=== PATIENT | female | born 1935 | race Caucasian/White ===

== ENCOUNTER 2016-11-28 02:14 | Emergency (ER) | payer OTHER, MEDICARE ==
--- NOTE | 2016-11-28 04:10 | ED ORDER SUMMARY ---
..... Patient: TAMMIE TOURE B OrderSheet [facility] VisitID: [id number] [address] [place] [address] 81y, F Registration Date/Time: 11/28/2016 ORDER SHEET Weight: 104.3 kg (stated) Allergies: Sulfa Antibiotics, Celebrex GENERAL ORDERS: UA-Culture if indicated Urgent (02:29 11/28/2016 AMcQuoid ER Tech1 verbal order read back to Vineet Darling) (2:32 CHagerty ER Die Mounter) CBC w Diff Urgent (02:32 11/28/2016 Vineet Darling) (Ack 2:35 CHagerty ER Die Mounter) (2:35 Roger ER Die Mounter) CMP Urgent (02:11/28/2016 Vineet Darling) (Ack 2:35 CHagerty ER Die Mounter) (2:35 CHagerty ER Die Mounter) PT with INR Urgent (02:11/28/2016 Vineet Darling) (Ack 2:35 CHagerty ER Die Mounter) (2:35 CHagerty ER Die Mounter) Pulse oximeter (02:32 11/28/2016 Vineet Darling) (Ack 2:35 CHagerty ER Die Mounter) (2:36 JDeElena R.N.) CT Abd/Pel wo Cont Urgent (02:33 11/28/2016 Vineet Darling) (Ack 2:35 CHagerty ER Die Mounter) (2:43 AMcQuoid ER Tech1) MEDICATION ORDERS: IV FLUIDS: IV NS : initial bolus 1000 mL (1000 mL/hr), then none - for X1 (NOW) (02:32 11/28/2016 Vineet Darling) (2:35 JDeElena R.N.) Toradol IV 30 mg (NOW) (02:32 11/28/2016 Vineet Darling) (2:36 JDeElena R.N.) Zofran IV 4 mg (NOW) (02:38 11/28/2016 JQuivey R.N. per protocol) (2:38 JQuivey R.N.) Ceftriaxone IV 1 gm/50mL (NOW) (02:59 11/28/2016 Vineet Darling) (Ack 3:00 Lorna R.N.) (3:09 Lorna R.N.) Morphine IV 4 mg (once now. may repeat once for pain > 5/10 in 15 minutes) (03:06 11/28/2016 Vineet Darling) (Ack 3:09 JDeElena R.N.) (3:13 JDeElena R.N.) ORDER SHEET NOTES: [Electronically signed by Miguel Angel Frye R.N. (:11/28/2016)] [Electronically signed by Cliff Tang Dr. (07:30 11/28/2016)] [Electronically locked/signed by Miguel Angel Frye R.N. (11/28/2016)]
--- NOTE | 2016-11-28 04:10 | ED CLINICAL REPORT ---
Clinical Report - Physicians/Mid Levels [facility] [address] [place] [address] 11/28/2016 2:17 Patient: TAMMIE TOURE Time Seen: 228. Arrived- By private vehicle. Historian- patient. HISTORY OF PRESENT ILLNESS Chief Complaint: FLANK PAIN. At its maximum, severity described as severe. When seen in the E.D., severity described as severe. Modifying factors- worsened by movement. Relieved by rest. It is described as sharp. No radiation. It is described as located in the right flank. This started just prior to arrival today and is still present (unchanged). It was abrupt in onset and has been constant but is not gone now. The patient has had nausea and vomiting. No loss of appetite or diarrhea. No additional abdominal pain. Similar symptoms previously: Several times. ( reports it is the same as the last kidney stone that she had.). REVIEW OF SYSTEMS No black stools, bloody stools, fever or chest pain. All systems otherwise negative, except as recorded above. PAST HISTORY See nurses notes. Medications: Nitrostat Sublingual (Tablet Sublingual 0.4 mg) 1 tablet, PRN (dissolve 1 tab under tongue q5min for chest pain, up to 3 doses. ). Metoprolol Succinate ER Oral 40 mg, 1 tab 2 x daily. Budesonide (Inhalation) Inhalation, as needed. ProAir HFA Inhalation. Glipizide Oral (Tablet 5 mg) 1 tablet, 2x a day. Potassium Chloride Oral 20 meq, daily. Furosemide Oral (Tablet 80 mg) 1/2 tablet, daily. Multivitamins Oral. Claritin Oral (Tablet 10 mg) 1 tablet, daily. Vitamin E Complex Oral (Capsule 400 unit) 1 capsule, daily. Bowie 3 Oral (Capsule 1000 mg) 1 capsule, daily. Atorvastatin Calcium Oral (Tablet 40 mg) 1 tablet, at bedtime. Omeprazole Oral 20 mg, daily. Aspirin Oral (Tablet 81 mg) 1 tablet, daily. Allergies: Celebrex. Sulfa Antibiotics. SOCIAL HISTORY Never smoker. No alcohol use or drug use. No recent travel. Is a local resident. ADDITIONAL NOTES The nursing notes have been reviewed. PHYSICAL EXAM Vital Signs: 11/28/2016 02:21 BP: 154/98. HR: 81. RR: 16. O2 saturation: 97%. Temp: 97.5 F. Pain level now: 10/10. Hypertensive. Oxygen saturation normal. Appearance: Alert. Oriented X3. Patient in mild distress. (nontoxic appearance. Pleasant. Cooperative.). Eyes: Pupils equal, round and reactive to light. Eyes normal inspection. ENT: Ears normal. Nose normal. Pharynx normal. Neck: Normal inspection. Neck supple. CVS: Normal heart rate and rhythm. Heart sounds normal. Pulses normal. Respiratory: No respiratory distress. Wheezing present. Rhonchi present. Rales present. Breath sounds normal. Chest nontender. Abdomen: Soft and nontender. Bowel sounds normal. Back: Mild CVA tenderness on the right. Skin: Skin warm and dry. Normal skin color. No rash. Normal skin turgor. Extremities: Extremities exhibit normal ROM. No lower extremity edema. Neuro: Oriented X 3. No motor deficit. No sensory deficit. LABS, X-RAYS, AND EKG Abdominal CT: No free fluid. No bony lesion. right-sided urolithiasis at the UVJ. Associated hydronephrosis. Several other stones noted on examination at the kidneys bilaterally. Study type: renal stone evaluation; abdomen and pelvis. The study was independently viewed by me and interpreted by the radiologist. The study was discussed with the radiologist (via fax). Laboratory Tests: UA-Culture if indicated: (WAQAS: 11/28/2016 02:20) ( MsgRcvd 11/28/2016 02:38) Final results Test Result Flag Units (Reference) URINE COLOR YELLOW URINE APPEARANCE CLEAR URINE GLUCOSE NEGATIVE (NEGATIVE) URINE BILIRUBIN NEGATIVE (NEGATIVE) URINE KETONE TRACE (NEGATIVE) URINE SPECIFIC GRAVITY >= 1.030 (1.010-1.030) URINE PH 5.0 (5.0-8.0) URINE PROTEIN NEGATIVE (NEGATIVE) URINE UROBILINOGEN 0.2 EU/dL (0.2-1.0) URINE NITRITE NEGATIVE (NEGATIVE) URINE BLOOD 3+ (NEGATIVE) URINE LEUK ESTERASE POSITIVE (NEGATIVE) URINE RBC 10-25 rbc/hpf (0-1) URINE WBC 10-15 wbc/hpf (0-1) URINE EPITHELIAL CELLS 1-3 EPI/hpf (0-5) URINE BACTERIA MODERATE (2+ TO 3+) (NONE SEEN) URINE COMMENT CULTURE INDICATED URINE CULTURES ARE SET-UP BASED ON THE FOLLOWING CRITERIA:POSITIVE NITRITEPOSITIVE LEUKOCYTE ESTERASEGREATER THAN 10 WHITE BLOOD CELLSMODERATE (2+) OR GREATER BACTERIA CBC w Diff: (WAQAS: 11/28/2016 02:30) ( [facility] 11/28/2016 02:39) Final results Test Result Flag Units (Reference) WHITE BLOOD COUNT 9.6 K/uL (4.5-11.5) RED BLOOD COUNT 4.57 M/uL (4.00-5.20) HEMOGLOBIN 13.4 gm/dL (12.0-16.0) HEMATOCRIT 41.0 % (36.0-46.0) MEAN CELL VOLUME 90 fL (80-100) MEAN CORPUSCULAR HGB 29 pg (26-34) MEAN CORPUSCULAR HGB CONC 33 g/dL (31-37) RED CELL DISTRIBUTION WIDTH 15.2 H % (11.6-14.8) PLATELET COUNT 291 K/uL (150-400) NEUTROPHIL % 54.9 % (50-75) LYMPH % 32.7 % (25-40) MONO % 9.4 % (3-14) EOSINOPHIL % 2.5 % (0-4) BASOPHIL % 0.5 % (0-2) PT with INR: (WAQAS: 11/28/2016 02:30) ( [facility] 11/28/2016 02:48) Final results Test Result Flag Units (Reference) INR 0.9 (0.8-1.2) Low Intensity Therapy: INR 1.5-2.0 PT range 18.5-23.1Mod.Intensity Therapy: INR 2.0-3.0 PT range 23.1-31.5High Intensity Therapy: INR 2.5-3.5 PT range 27.4-35.5High Intensity Therapy 2: INR 3.0-4.0 PT range 31.5-39.3 CMP: (WAQAS: 11/28/2016 02:30) ( [facility] 11/28/2016 03:07) Final results Test Result Flag Units (Reference) GLUCOSE 164 H mg/dL (70-110) BUN 29 H mg/dL (7-18) CREATININE 1.0 mg/dL (0.6-1.3) Estimated GFR 56.85 mL/min Estimated GFR- >60 mL/min Note: Persistent reduction over 3 months in eGFR<60 mL/min/1.73 m2 defines CKD. Patients with eGFR values>=60 mL/min/1.73 m2 may also have CKD if evidence ofpersistent proteinuria. Additional information may be foundat www.kidney.org. SODIUM 142 mmol/L (136-145) POTASSIUM 4.3 mmol/L (3.5-5.1) CHLORIDE 106 mmol/L (98-107) CARBON DIOXIDE 24 mmol/L (21-32) CALCIUM 8.7 mg/dL (8.5-10.1) TOTAL PROTEIN 7.5 g/dL (6.4-8.2) ALBUMIN 3.5 g/dL (3.3-5.0) BILIRUBIN, TOTAL 0.3 mg/dL (0.0-1.0) ALKALINE PHOSPHATASE 124 H U/L (46-116) AST (SGOT) 26 U/L (15-37) ALT (SGPT) 27 U/L (12-78) . PROGRESS AND PROCEDURES Course of Care: The patient is a pleasant 81-year-old female with past medical history significant for urolithiasis, Remote appendectomy, and remote total hysterectomy with bilateral for ectomy presenting for evaluation of right-sided flank pain. Patient's history and examination is consistent with renal colic. Patient will be evaluated with urinalysis as well as CBC and CMP for evaluation of electrolytes And kidney function. Patient is agreeable to the treatment plan. Fluids have been provided as well as pain medication. Patient is agreeable to the treatment plan. The patient's workup was remarkable for the findings above. Patient with urinary tract infection. First dose of her antibiotics have been provided here in the emergency department. Radiology had commented that the patient's stone is 6 mm however on my examination, the patient's stone is less than 5 mm in of multiple planes. Because of the patient's location and size of stone, good likelihood the patient will have a spontaneous passage of her stone. Medications provided for the symptoms at home. Referral to urology also provided. Patient encouraged to follow up with her primary care doctor and's established care with urologist. While here in the emergency department, patient's pain is significantly improved. Patient continues to be nontoxic. Patient is resting in bed and in no acute distress. Patient has been ambulatory without any significant abnormalities. Discussed with the patient workup here in the emergency department including diagnosis, home care, follow-up, and return precautions. All questions have been answered. The patient expressed understanding of these instructions and was agreeable to them. Disposition: Discharged. Condition: good. CLINICAL IMPRESSION Acute right lower quadrant abdominal pain. Vomiting with nausea (acute). Ureterolithiasis (single stone) in the right ureter. Acute urinary tract infection with hematuria. Essential hypertension. INSTRUCTIONS Warnings: GENERAL WARNINGS: Return or contact your physician immediately if your condition worsens or changes unexpectedly, if not improving as expected, or if other problems arise. SPECIFICALLY, return if you develop pain, fever, vomiting, the inability to keep fluids down, blood in vomitus, blood in diarrhea, fainting or lightheadedness. Your Current Medications: CONTINUE TAKING THE FOLLOWING MEDICATIONS: Aspirin Oral : Tablet 81 mg, 1 tablet daily. Atorvastatin Calcium Oral : Tablet 40 mg, 1 tablet at bedtime. Budesonide (Inhalation) Inhalation : prn. Claritin Oral : Tablet 10 mg, 1 tablet daily. Furosemide Oral : Tablet 80 mg, 1/2 tablet daily. Glipizide Oral : Tablet 5 mg, 1 tablet 2x a day. Metoprolol Succinate ER Oral : 40 mg 1 tab 2 x daily. Multivitamins Oral. Nitrostat Sublingual : Tablet Sublingual 0.4 mg, 1 tablet PRN, dissolve 1 tab under tongue q5min for chest pain, up to 3 doses. Bowie 3 Oral : Capsule 1000 mg, 1 capsule daily. Omeprazole Oral : 20 mg daily. Potassium Chloride Oral : 20 meq daily. ProAir HFA Inhalation. Vitamin E Complex Oral : Capsule 400 unit, 1 capsule daily. Prescription Medications: Zofran (orally disintegrating tablets) 4 mg: take 1 orally every 8 hours as needed for nausea and vomiting. Dispense ten (10). No refill. Substitution is permissible. Cephalexin 500 mg: take 1 capsule orally every 8 hours for 7 days. No refill. (disp 21 caps) Motrin 600 mg tablets: take 1 tablet orally every 6 hours as needed for pain, stiffness or swelling. Dispense thirty (30). No refill. Substitution is permissible. (take with food) Follow-up: Return to the emergency department as needed. Follow up with your doctor in three days. Reason for referral: recheck today's concerns. Summary of care provided to patient via paper. Screening today revealed the patient's blood pressure to be in the hypertensive range. The patient should follow up with a primary care provider for blood pressure management. Understanding of the discharge instructions verbalized by patient. Follow-up with: Aamir Hastings MD, Urology, , [address] [facility] [id number] Follow up in one week. Reason for referral: recheck today's concerns. Summary of care provided to patient via paper. (Electronically signed by Cliff Tang Dr. 11/28/2016 7:30)
--- NOTE | 2016-11-28 04:10 | ED NURSING NOTES ---
Clinical Report - Nurses [facility] [address] [place] [address] 11/28/2016 2:17 Patient: TAMMIE TOURE TRIAGE Triage time 02:22. Acuity: LEVEL 4. Chief Complaint: ABDOMINAL PAIN, LOW BACK PAIN and RIGHT-SIDED FLANK PAIN (Onset of pain about 2 hours ago; localized to R side abdomen/flank. Describes pain as "like I am having a baby and is it not going to quit." Hx of kidney stones, reports S/S are similar to past when she has experienced kidney stones.). Alert. SEPSIS SCREEN: Sepsis Screen: negative. Negative (no infection suspected/documented). --02:30 Miguel Angel Frye R.N. 02:21 11/28/16. BP: 154/98 (regular adult cuff) taken on the left arm, via an automated monitor, while sitting. HR: 81 (normal rate). RR: 16 (regular, unlabored and normal). O2 saturation: 97% on room air. Temp: 97.5 F (oral). Pain level now: 05/10. --02:30 Miguel Angel Frye R.N. Weight: 104.3 kg stated. Height/Length: 68 inches Per Patient. BMI: 35. --02:23 Miguel Angel Frye R.N. Medications Aspirin Oral (Tablet 81 mg) 1 tablet, daily. --02:30 Miguel Angel Frye R.N. Omeprazole Oral 20 mg, daily. --02:31 Miguel Angel Frye R.N. Atorvastatin Calcium Oral (Tablet 40 mg) 1 tablet, at bedtime. --02:31 Miguel Angel Frye R.N. [place] 3 Oral (Capsule 1000 mg) 1 capsule, daily. --02:31 Miguel Angel Frye R.N. Vitamin E Complex Oral (Capsule 400 unit) 1 capsule, daily. --02:31 Miguel Angel Frye R.N. Claritin Oral (Tablet 10 mg) 1 tablet, daily. --02:31 Miguel Angel Frye R.N. Multivitamins Oral. --02:32 Miguel Angel Frye R.N. Furosemide Oral (Tablet 80 mg) 1/2 tablet, daily. --02:32 Miguel Angel Frye R.N. Potassium Chloride Oral 20 meq, daily. --02:32 Miguel Angel Frye R.N. Glipizide Oral (Tablet 5 mg) 1 tablet, 2x a day. --02:32 Miguel Angel Frye R.N. ProAir HFA Inhalation. --02:33 Miguel Angel Frye R.N. Budesonide (Inhalation) Inhalation, as needed. --02:33 Miguel Angel Frye R.N. Metoprolol Succinate ER Oral 40 mg, 1 tab 2 x daily. --02:33 Miguel Angel Frye R.N. Nitrostat Sublingual (Tablet Sublingual 0.4 mg) 1 tablet, PRN (dissolve 1 tab under tongue q5min for chest pain, up to 3 doses. ). --02:34 Miguel Angel Frye R.N. Medication/allergy information source: the patient. --02:30 Miguel Angel Frye R.N. Allergies Sulfa Antibiotics. --02:29 Miguel Angel Frye R.N. Celebrex. --02:29 Miguel Angel Frye R.N. History Arrived by private vehicle. Historian: patient. Unaccompanied. Primary physician (Sinan Nagel). This started just prior to arrival. She has had severe, constant, sharp right-sided flank pain. She has had nausea and vomiting. The vomiting has occurred only once. No hematuria. Last oral intake by patient was (1830 on 11/28/16). Treatment ASSOCIATE DIRECTOR OF DEVELOPMENT: None. PAST MEDICAL HX: Immunizations: up-to-date. SOCIAL HX: Never smoker. No alcohol use or drug use. She has not traveled outside the [place] The patient was not exposed to MRSA. No infectious disease exposure. ABUSE ASSESSMENT: Abuse assessment: The patient was asked "Do you feel safe in your home?" and "Has anyone hurt you or threatened to hurt you?". No report of abuse. SELF HARM ASSESSMENT: A self harm assessment was performed. The patient answered "no" to the question "Do you have thoughts of harming or killing yourself?" and "Have you recently had thoughts about harming or killing others?". FALL RISK ASSESSMENT: Fall risk assessment completed. No fall risk identified. NUTRITIONAL RISK ASSESSMENT: The nutritional risk assessment revealed no deficiencies. LEARNING NEEDS ASSESSMENT: The learning needs assessment revealed no barriers. FUNCTIONAL ASSESSMENT: Functional assessment performed: wears glasses- this visual impairment is an ongoing problem. SKIN INTEGRITY ASSESSMENT: Skin integrity risk assessment completed. No skin integrity risk identified. --02: Miguel Angel Frye R.N. PROBLEMS: Hypertension. Gastroenteritis. Vomiting. Diarrhea. Atrial Fibrillation. Congestive Heart Failure. Gastroesophageal Reflux Disease. Diabetes Mellitus. --: Miguel Angel Frye R.N. ADDITIONAL SURGERIES: Previous Abdominal Surgery. --: Miguel Angel Frye R.N. Assessment GENERAL / NEURO / PSYCH: Alert. Oriented X 4. Appears in pain. Jf Coma Scale: 15- eyes open spontaneously (4); best verbal response- oriented x 4 (5); best motor response- obeys commands (6). Patient appears calm and cooperative. RESPIRATORY: Respirations not labored. SKIN: Skin is warm and dry. --02: Miguel Angel Frye R.N. Interventions ID band on patient. To treatment room. --: Miguel Angel Frye R.N. PHYSICAL ASSESSMENT 02:30. Ambulatory to room. GENERAL / NEURO / PSYCH: Alert. Oriented X 4. Appears in pain. RESPIRATORY: No respiratory distress. Respirations not labored. CVS: Pulses: right radial 2+ and left radial 2+. Capillary refill less than 2 seconds. GI / : Abdomen soft. Abdominal tenderness in the right lower quadrant. CVA tenderness on the right. SKIN: Skin is warm and dry. --04:25 Miguel Angel Frye R.N. NURSING PROGRESS NOTES The initial plan of care for this patient has been created This plan of care was discussed with the patient. Pulse oximeter and NIBP monitor placed on patient. Patient gowned. Reassurance given to the patient. Patient ID band checked for patient name and birthdate: patient confirmed. Instructions provided to collect clean catch urine and patient verbalized understanding. Clean catch urine collected with return of yellow-colored clear urine; sample sent to lab for urinalysis. Specimen labeled in the presence of the patient. Two patient identifiers checked. Call light placed in reach. Side rails up x 1. Bed placed in lowest position. Brakes of bed on. --02:30 Miguel Angel Frye R.N. 02:30 11/28/2016 Site #1 started via IV in the right forearm with an 20g angiocath, with aseptic technique and good blood return; one attempt. Blood drawn: rainbow set. Labeled in the presence of the patient and sent to the lab. Saline lock flushed with 10 mL saline. --02:30 Miguel Angel Frye R.N. 02:35 11/28/2016 Started bag #1 1000 mL IV Fluids IV NS (Saline); at 1000 mL/hr over 1 hour(s) via site #1. Allergies verified and confirmed 5 rights. IV patency established. IV site checked: no pain, redness, or swelling. IV flushed thoroughly pre- and post-medication administration. Completed per protocol. --02:35 Miguel Angel Frye R.N. 02:36 11/28/2016 Toradol IVP 30 mg given over 2 minute(s) via site #1. Allergies verified and confirmed 5 rights. IV patency established. IV site checked: no pain, redness, or swelling. IV flushed thoroughly pre- and post-medication administration. IVP given by RN. --02:36 Miguel Angel Frye R.N. Patient transported to [place] by stretcher with tech. --02:38 Miguel Angel Frye R.N. 02:38 11/28/2016 Zofran (Ondansetron HCl) IVP 4 mg given over 2 minute(s) via site #1. Allergies verified and confirmed 5 rights. IV patency established. IV site checked: no pain, redness, or swelling. IV flushed thoroughly pre- and post-medication administration. --02:38 Jeff Lamar RSharitaNSharita Patient returned from CT by stretcher with tech. --02:43 Miguel Angel Frye R.N. 03:09 11/28/2016 Started 1 gm of Ceftriaxone IVPB in bag #1 50 mL; at 100 mL/hr via site #1; Allergies verified and confirmed 5 rights. IV patency established. IV site checked: no pain, redness, or swelling. IV flushed thoroughly pre- and post-medication administration. Completed per protocol. --03:09 Miguel Angel Frye R.N. 03:13 11/28/2016 Morphine IVP 2 mg given over 2 minute(s) via site #1. Allergies verified, confirmed 5 rights and sedative warning given to the patient. IV patency established. IV site checked: no pain, redness, or swelling. IV flushed thoroughly pre- and post-medication administration. IVP given by RN (Reviewed with EDP giving 1/2 dose prior to administration per pt request.). --03:13 Miguel Angel Frye R.N. 03:11/28/2016 Toradol IVP Response: no adverse reaction pain is improving. --03:13 Miguel Angel Frye R.N. 03:11/28/2016 Zofran IVP Response: no adverse reaction pain is improving. --03:13 Miguel Angel Frye R.N. Reassessment after medication administered. She is calm and resting quietly and has had no adverse reaction. Overall patient status is improved- she states feels better. --03:22 Miguel Angel Frye R.N. 03:11/28/2016 Ceftriaxone IVPB Discontinued: bag #1 completed upon discharge. Total amount infused: 50 mL. IV patency established. IV site checked: no pain, redness, or swelling. IV flushed thoroughly. --03:29 Miguel Angel Frye R.N. 03:11/28/2016 Morphine IVP Response: no adverse reaction pain is improving. Symptoms have improved the patient feels better. --03:29 Miguel Angel Frye R.N. 03:11/28/16. BP: 156/73 (large adult cuff) taken on the left arm, via an automated monitor, while lying. HR: 75 (normal rate). RR: 16 (regular, unlabored and normal). O2 saturation: 94% on room air. --03:30 Miguel Angel Frye R.N. DISPOSITION / DISCHARGE 04:11/28/2016 Site #1 removed upon discharge. Catheter intact. Bandaid applied (bleeding controlled). --04:22 Miguel Angel Frye R.N. Departure time: 04:24. Condition at departure: stable. The goals identified in the patient's plan of care were met. No learning barriers present. Discharge instructions provided and reviewed with the patient. Reviewed medication(s) side effects, precautions, dosing and course information. Prescription(s) given to the patient (Liberty verbalizes importance of finshing all prescribed antbx.). Reviewed referral to a urologist. Patient verbalized understanding. Written instructions provided in Kiswahili. ( Liberty verbalizes understanding of all d/c instructions including need for f/u with Urology. Given strainers and a urine cup to catch stone for analysis. She has no questions and voices no concerns at this time.). The patient was discharged by the physician. She was discharged home and accompanied by family. She left the Emergency Department ambulatory and via private vehicle. Family member driving (Son). JF COMA SCORE: Jf Coma Scale: 15- eyes open spontaneously (4); best verbal response- oriented x 4 (5); best motor response- obeys commands (6). --04:24 Miguel Angel Frye R.N. 04:21 11/28/16. BP: 160/94 (large adult cuff) taken on the left arm, via an automated monitor, while sitting. HR: 72 (normal rate). RR: 16 (regular, unlabored and normal). O2 saturation: 96% on room air. Temp: 97.6 F (oral). Pain level now: 11/08. --04:24 Miguel Angel Frye R.N. Locked/Released at 11/28/2016 4:25 by Miguel Angel Frye R.N.
--- NOTE | 2016-11-28 04:10 | ED ORDER SUMMARY ---
..... Patient: TAMMIE TOURE B OrderSheet [facility] VisitID: [id number] [address] [place] [address] 81y, F Registration Date/Time: 11/28/2016 ORDER SHEET Weight: 104.3 kg (stated) Allergies: Sulfa Antibiotics, Celebrex GENERAL ORDERS: UA-Culture if indicated Urgent (02:29 11/28/2016 AMcQuoid ER Tech1 verbal order read back to Vineet Darling) (2:32 CHagerty ER Prawn Trawler Hand) CBC w Diff Urgent (02:32 11/28/2016 Vineet Darling) (Ack 2:35 CHagerty ER Prawn Trawler Hand) (2:35 Roger ER Prawn Trawler Hand) CMP Urgent (02:11/28/2016 Vineet Darling) (Ack 2:35 CHagerty ER Prawn Trawler Hand) (2:35 CHagerty ER Prawn Trawler Hand) PT with INR Urgent (02:11/28/2016 Vineet Darling) (Ack 2:35 CHagerty ER Prawn Trawler Hand) (2:35 CHagerty ER Prawn Trawler Hand) Pulse oximeter (02:32 11/28/2016 Vineet Darling) (Ack 2:35 CHagerty ER Prawn Trawler Hand) (2:36 JDeElena R.N.) CT Abd/Pel wo Cont Urgent (02:33 11/28/2016 Vineet Darling) (Ack 2:35 CHagerty ER Prawn Trawler Hand) (2:43 AMcQuoid ER Tech1) MEDICATION ORDERS: IV FLUIDS: IV NS : initial bolus 1000 mL (1000 mL/hr), then none - for X1 (NOW) (02:32 11/28/2016 Vineet Darling) (2:35 JDeElena R.N.) Toradol IV 30 mg (NOW) (02:32 11/28/2016 Vineet Darling) (2:36 JDeElena R.N.) Zofran IV 4 mg (NOW) (02:38 11/28/2016 JQuivey R.N. per protocol) (2:38 JQuivey R.N.) Ceftriaxone IV 1 gm/50mL (NOW) (02:59 11/28/2016 Vineet Darling) (Ack 3:00 Lorna R.N.) (3:09 Lorna R.N.) Morphine IV 4 mg (once now. may repeat once for pain > 5/10 in 15 minutes) (03:06 11/28/2016 Vineet Darling) (Ack 3:09 JDeElena R.N.) (3:13 JDeElena R.N.) ORDER SHEET NOTES: [Electronically signed by Miguel Angel Frye R.N. (:11/28/2016)] [Electronically signed by Cliff Tang Dr. (07:30 11/28/2016)] [Electronically locked/signed by Miguel Angel Frye R.N. (11/28/2016)]
--- NOTE | 2016-11-28 07:18 | DIAGNOSTIC IMAGING REPORT ---
PROCEDURE: CT ABDOMEN/PELVIS W/O CONTRAST INDICATION: RIGHT FLANK PAIN TECHNIQUE: Noncontrast axial images were obtained of the entire abdomen and pelvis with sagittal and coronal reformations. COMPARISON: None. FINDINGS: ABDOMEN: 5 mm right UVJ calculus with moderate right hydroureteronephrosis. Bilateral nonobstructing renal calculi (one - 2 mm). 4 cm left renal cyst. Lung base are clear. Mild cardiomegaly. Contracted gallbladder. Liver, pancreas, spleen and adrenal glands are normal. Mild atherosclerosis. Nonspecific bowel gas pattern. Mild hiatal hernia. PELVIS: History of appendectomy. Hysterectomy. No pelvic mass, inflammatory changes or free fluid. Grade 1 L4-5 anterolisthesis. IMPRESSION: 1. 5 mm right UVJ calculus with moderate right hydroureteronephrosis 2. Bilateral nonobstructing renal calculi 3. Small hiatal hernia 4. Appendectomy and hysterectomy 5. Preliminary results submitted by Dr. Lozano, [facility] radiology. All CT scans at this facility use dose modulation, iterative reconstruction, and/or weight-based dosing when appropriate to reduce radiation dose to as low as reasonably achievable.
--- NOTE | 2016-11-28 07:31 | ED MED RECONCILIATION SUMMARY ---
Patient: TAMMIE TOURE Medication Reconciliation Report [facility] VisitID: [id number] [place] [address] 81y, F Registration Date/Time: 11/28/2016 Weight: 104.3 kg Height/Length: 68 in. BMI: 35.0 ALLERGIES: Celebrex, Sulfa Antibiotics The patient's Home Medications are listed below: CONTINUE TAKING THE FOLLOWING MEDICATIONS: Aspirin Oral (81 mg) 1 tablet, daily Atorvastatin Calcium Oral (40 mg) 1 tablet, at bedtime Budesonide (Inhalation) Inhalation Claritin Oral (10 mg) 1 tablet, daily Furosemide Oral (80 mg) 1/2 tablet, daily Glipizide Oral (5 mg) 1 tablet, 2x a day Metoprolol Succinate ER Oral 40 mg, 1 tab 2 x daily Multivitamins Oral Nitrostat Sublingual (0.4 mg) 1 tablet, PRN, dissolve 1 tab under tongue q5min for chest pain, up to 3 doses. [place] 3 Oral (1000 mg) 1 capsule, daily Omeprazole Oral 20 mg, daily Potassium Chloride Oral 20 meq, daily ProAir HFA Inhalation Vitamin E Complex Oral (400 unit) 1 capsule, daily The source(s) of the original Home Medication information: patient The following Medications were given to the patient in the Emergency Department: IV NS IV Fluids bolus 0, then 1000 mL/hr, administered: 11/28/2016 2:35:00 AM Toradol [IVP] IVP 30 mg, administered: 11/28/2016 2:36:00 AM Zofran [IVP] IVP 4 mg, administered: 11/28/2016 2:38:00 AM Ceftriaxone [IVPB] IVPB bolus 0, then 1 gm 100 mL/hr, administered: 11/28/2016 3:09:00 AM Morphine [IVP] IVP 2 mg, administered: 11/28/2016 3:13:00 AM The following Medications were prescribed to the patient: Zofran (orally disintegrating tablets) 4 mg: take 1 orally every 8 hours as needed for nausea and vomiting. Dispense ten (10). No refill. Substitution is permissible. -- Cliff Tang Dr. Cephalexin 500 mg: take 1 capsule orally every 8 hours for 7 days. No refill.(disp 21 caps) -- Cliff Tang Dr. Motrin 600 mg tablets: take 1 tablet orally every 6 hours as needed for pain, stiffness or swelling. Dispense thirty (30). No refill. Substitution is permissible.(take with food) -- Cliff Tang Dr.
--- NOTE | 2016-11-28 07:31 | ED MED RECONCILIATION SUMMARY ---
Patient: TAMMIE TOURE Medication Reconciliation Report [facility] VisitID: [id number] [place] [address] 81y, F Registration Date/Time: 11/28/2016 Weight: 104.3 kg Height/Length: 68 in. BMI: 35.0 ALLERGIES: Celebrex, Sulfa Antibiotics The patient's Home Medications are listed below: CONTINUE TAKING THE FOLLOWING MEDICATIONS: Aspirin Oral (81 mg) 1 tablet, daily Atorvastatin Calcium Oral (40 mg) 1 tablet, at bedtime Budesonide (Inhalation) Inhalation Claritin Oral (10 mg) 1 tablet, daily Furosemide Oral (80 mg) 1/2 tablet, daily Glipizide Oral (5 mg) 1 tablet, 2x a day Metoprolol Succinate ER Oral 40 mg, 1 tab 2 x daily Multivitamins Oral Nitrostat Sublingual (0.4 mg) 1 tablet, PRN, dissolve 1 tab under tongue q5min for chest pain, up to 3 doses. [place] 3 Oral (1000 mg) 1 capsule, daily Omeprazole Oral 20 mg, daily Potassium Chloride Oral 20 meq, daily ProAir HFA Inhalation Vitamin E Complex Oral (400 unit) 1 capsule, daily The source(s) of the original Home Medication information: patient The following Medications were given to the patient in the Emergency Department: IV NS IV Fluids bolus 0, then 1000 mL/hr, administered: 11/28/2016 2:35:00 AM Toradol [IVP] IVP 30 mg, administered: 11/28/2016 2:36:00 AM Zofran [IVP] IVP 4 mg, administered: 11/28/2016 2:38:00 AM Ceftriaxone [IVPB] IVPB bolus 0, then 1 gm 100 mL/hr, administered: 11/28/2016 3:09:00 AM Morphine [IVP] IVP 2 mg, administered: 11/28/2016 3:13:00 AM The following Medications were prescribed to the patient: Zofran (orally disintegrating tablets) 4 mg: take 1 orally every 8 hours as needed for nausea and vomiting. Dispense ten (10). No refill. Substitution is permissible. -- Cliff Tang Dr. Cephalexin 500 mg: take 1 capsule orally every 8 hours for 7 days. No refill.(disp 21 caps) -- Cliff Tang Dr. Motrin 600 mg tablets: take 1 tablet orally every 6 hours as needed for pain, stiffness or swelling. Dispense thirty (30). No refill. Substitution is permissible.(take with food) -- Cliff Tang Dr.
--- NOTE | 2016-11-28 07:31 | ED MAR SUMMARY ---
..... Medication Administration Record [facility] [address] [place] [address] Patient: TAMMIE TOURE Visit ID: [id number] 81y, F Weight: 104.3 kg Height/Length: 68 in BMI: 35 ALLERGIES: Celebrex, Sulfa Antibiotics Start 02:35 11/28/2016 Miguel Angel Frye R.N. Medication Administered: IV NS (SALINE), Dose: IV Fluids over 1 hour(s), Rate: 1000 mL/hr, Dispensed: 1000 mL bag, Site: #1 right forearm. Medication Ordered: IV NS : initial bolus 1000 mL (1000 mL/hr), then none - for X1 (NOW). Given 02:36 11/28/2016 Miguel Angel Frye R.N. Medication Administered: TORADOL [IVP], Dose: 30 mg IVP over 2 minute(s), Site: #1 right forearm. Medication Ordered: Toradol IV 30 mg (NOW). Given 02:38 11/28/2016 Jeff Lamar R.N. Medication Administered: ZOFRAN [IVP] (ONDANSETRON HCL), Dose: 4 mg IVP over 2 minute(s), Site: #1 right forearm. Medication Ordered: Zofran IV 4 mg (NOW). Start 03:09 11/28/2016 Miguel Angel Frye R.N., Stop 03:29 11/28/2016 Miguel Angel Frye R.N. Medication Administered: CEFTRIAXONE [IVPB], Dose: 1 gm IVPB, Rate: 100 mL/hr, Dispensed: 50 mL bag, Site: #1 right forearm. Medication Ordered: Ceftriaxone IV 1 gm/50mL (NOW). Given 03:13 11/28/2016 Miguel Angel Frye R.N. Medication Administered: MORPHINE [IVP], Dose: 2 mg IVP over 2 minute(s), Site: #1 right forearm. Medication Ordered: Morphine IV 4 mg (once now. may repeat once for pain > 5/10 in 15 minutes).
--- NOTE | 2016-11-28 07:31 | ED DISCHARGE INSTRUCTIONS ---
Patient: TAMMIE TOURE General Instructions [facility] VisitID: [id number] [place] [address] 81y, F Registration Date/Time: 11/28/2016 Acute right lower quadrant abdominal pain. Vomiting with nausea (acute). Ureterolithiasis (single stone) in the right ureter. Acute urinary tract infection with hematuria. Essential hypertension. INSTRUCTIONS Warnings: GENERAL WARNINGS: Return or contact your physician immediately if your condition worsens or changes unexpectedly, if not improving as expected, or if other problems arise. SPECIFICALLY, return if you develop pain, fever, vomiting, the inability to keep fluids down, blood in vomitus, blood in diarrhea, fainting or lightheadedness. Your Current Medications: CONTINUE TAKING THE FOLLOWING MEDICATIONS: Aspirin Oral : Tablet 81 mg, 1 tablet daily. Atorvastatin Calcium Oral : Tablet 40 mg, 1 tablet at bedtime. Budesonide (Inhalation) Inhalation : prn. Claritin Oral : Tablet 10 mg, 1 tablet daily. Furosemide Oral : Tablet 80 mg, 1/2 tablet daily. Glipizide Oral : Tablet 5 mg, 1 tablet 2x a day. Metoprolol Succinate ER Oral : 40 mg 1 tab 2 x daily. Multivitamins Oral. Nitrostat Sublingual : Tablet Sublingual 0.4 mg, 1 tablet PRN, dissolve 1 tab under tongue q5min for chest pain, up to 3 doses. Earlimart 3 Oral : Capsule 1000 mg, 1 capsule daily. Omeprazole Oral : 20 mg daily. Potassium Chloride Oral : 20 meq daily. ProAir HFA Inhalation. Vitamin E Complex Oral : Capsule 400 unit, 1 capsule daily. Prescription Medications: Zofran (orally disintegrating tablets) 4 mg: take 1 orally every 8 hours as needed for nausea and vomiting. Dispense ten (10). No refill. Substitution is permissible. Cephalexin 500 mg: take 1 capsule orally every 8 hours for 7 days. No refill. (disp 21 caps) Motrin 600 mg tablets: take 1 tablet orally every 6 hours as needed for pain, stiffness or swelling. Dispense thirty (30). No refill. Substitution is permissible. (take with food) Follow-up: Return to the emergency department as needed. Follow up with your doctor in three days. Reason for referral: recheck today's concerns. Summary of care provided to patient via paper. Screening today revealed the patient's blood pressure to be in the hypertensive range. The patient should follow up with a primary care provider for blood pressure management. Understanding of the discharge instructions verbalized by patient. Follow-up with: Aamir Hastings MD, Urology, , [address] [facility] , [place], [id number] Follow up in one week. Reason for referral: recheck today's concerns. Summary of care provided to patient via paper. ADDITIONAL INFORMATION Abdominal Pain, Unknown Cause (Female) The exact cause of your abdominal (stomach) pain is not certain. This does not mean that this is something to worry about, or the right tests were not done. Everyone likes to know the exact cause of the problem, but sometimes with abdominal pain, there is no clear-cut cause, and this could be a good thing. The good news is that your symptoms can be treated, and you will feel better. Your condition does not seem serious now; however, sometimes the signs of a serious problem may take more time to appear. For this reason,it is important for you to watch for any new symptoms, problems,or worsening of your condition. Over the next few days, the abdominal pain may come and go, or be continuous. Other common symptoms can include nausea and vomiting. Sometimes it can be difficult to tell if you feel nauseous, you may just feel bad and not associate that feeling with nausea. Constipation, diarrhea, and a fever may go along with the pain. The pain may continue even if treated correctly over the following days. Depending on how things go, sometimes the cause can become clear and may require further or different treatment. Additional evaluations, medications, or tests may be needed. Home care Your health care provider may prescribe medications for pain, symptoms, or an infection. Follow the health care provider's instructions for taking these medications. General care Rest until your next exam. No strenuous activities. Try to find positions that ease discomfort. A small pillow placed on the abdomen may help relieve pain. Something warm on your abdomen (such as a heating pad) may help, but be careful not to burn yourself. Diet Do not force yourself to eat, especially if having cramps, vomiting, or diarrhea. Water is important so you do not get dehydrated. Soup may also be good. Sports drinks may also help, especially if they are not too acidic. Make sure you don't drink sugary drinks as this can make things worse. Take liquids in small amounts. Do not guzzle them. Caffeine sometimes makes the pain and cramping worse. Avoid dairy products if you have vomiting or diarrhea. Don't eat large amounts at a time. Wait a few minutes between bites. Eat a diet low in fiber (called a low-residue diet). Foods allowed include refined breads, white rice, fruit and vegetable juices without pulp, tender meats. These foods will pass more easily through the intestine. Avoid whole-grain foods, whole fruits and vegetables, meats, seeds and nuts, fried or fatty foods, dairy, alcohol and spicy foods until your symptoms go away. Follow-up care Follow up with your health care provider as instructed, or if your pain does not begin to improve in the next 24 hours. When to seek medical care Seek prompt medical care if any of the following occur: Pain gets worse or moves to the right lower abdomen New or worsening vomiting or diarrhea Swelling of the abdomen Unable to pass stool for more than three days Fever of 100.4F (38C) or higher, or as directed by your healthcare provider. Blood in vomit or bowel movements (dark red or black color) Jaundice (yellow color of eyes and skin) Weakness, dizziness Chest, arm, back, neck or jaw pain Unexpected vaginal bleeding or missed period Call 911 Call emergency services if any of the following occur: Trouble breathing Confusion Fainting or loss of consciousness Rapid heart rate Seizure Vomiting [6Yr-Adult] Vomiting is a common symptom that may be due to different causes. These include gastroenteritis ("stomach flu"), food poisoning and gastritis. There are other more serious causes of vomiting which may be hard to diagnose early in the illness. Therefore, it is important to watch for the warning signs listed below. The main danger from repeated vomiting is dehydration. This is due to excess loss of water and minerals from the body. When this occurs, body fluids must be replaced. Home Care: If symptoms are severe, rest at home for the next 24 hours. You may use acetaminophen (Tylenol) or ibuprofen (Motrin, Advil) to control fever, unless another medicine was prescribed. [NOTE : If you have chronic liver or kidney disease or ever had a stomach ulcer or GI bleeding, talk with your doctor before using these medicines.] (Aspirin should never be used in anyone under 18 years of age who is ill with a fever. It may cause severe liver damage.) Avoid tobacco and alcohol use, which may worsen your symptoms. If medicines for vomiting were prescribed, take as directed. Once vomiting stops, then follow these guidelines: During The First 12-24 Hours follow the diet below: FRUIT JUICES: Apple, grape juice, clear fruit drinks, and electrolyte replacement drinks. BEVERAGES: Soft drinks without caffeine; mineral water (plain or flavored), decaffeinated tea and coffee. SOUPS: Clear broth, consomm and bouillon DESSERTS: Plain gelatin, popsicles and fruit juice bars. As you feel better, you may add 6-8 ounces of yogurt per day. During The Next 24 Hours you may add the following to the above: Hot cereal, plain toast, bread, rolls, crackers Plain noodles, rice, mashed potatoes, chicken noodle or rice soup Unsweetened canned fruit (avoid pineapple), bananas Limit caffeine and chocolate. No spices or seasonings except salt. During The Next 24 Hours Gradually resume a normal diet, as you feel better and your symptoms lessen. Follow Up with your doctor as advised if you are not improving over the next 2-3 days. Get Prompt Medical Attention if any of the following occur: Constant right-sided lower abdominal pain or increasing general abdominal pain Continued vomiting (unable to keep liquids down) for 24 hours Frequent diarrhea (more than 5 times a day); blood (red or black color) or mucus in diarrhea Reduced urine output or extreme thirst Weakness, dizziness or fainting Unusually drowsy or confused Fever of 100.4F (38C) oral or higher, not better with fever medication Yellow color of the eyes or skin Kidney Stone (W/ Colic) The sharp cramping pain and nausea/vomiting that you have is due to a small stone which has formed in the kidney and is now passing down a narrow tube (ureter) on its way to your bladder. Once it reaches your bladder, the pain will stop. The stone may pass in your urine stream in one piece. [The size may be 1/16" to 1/4" (1-6mm)]. Or, the stone may also break up into gaudencio fragments which you may not even notice. Once you have had a kidney stone, you are at risk for developing another one in the future. Home Care: Drink plenty of fluids (at least 8 to 10 glasses of water a day). Most stones will pass on their own, but may take from a few hours to a few days. Sometimes the stone is too large to pass by itself and special methods will have to be used to remove the stone. Each time you urinate, do so in a jar. Pour the urine from the jar through the strainer and into the toilet. Continue doing this until 24 hours after your pain stops. By then, if there was a kidney stone, it should pass from your bladder. Some stones dissolve into sand-like particles and pass right through the strainer. In that case, you wont ever see a stone. Save any stone that you find in the strainer and bring it to your doctor for analysis. It may be possible to prevent certain types of stones from forming. Therefore, it is important to know what kind of stone you have. Try to stay as active as possible since this will help the stone pass. Do not stay in bed unless your pain prevents you from getting up. You may notice a red, pink or brown color to your urine. This is normal while passing a kidney stone. Follow Up with your doctor or return to this facility if the pain lasts more than 48 hours. Get Prompt Medical Attention if any of the following occur: Pain that is not controlled by the medicine given Repeated vomiting or unable to keep down fluids Weakness, dizziness or fainting Fever of 100.4F (38C) or higher, or as directed by your healthcare provider Passage of solid red or brown urine (can't see through it) or urine with lots of blood clots Unable to pass urine for 8 hours and increasing bladder pressure Blood In The Urine Blood in the urine ("hematuria") has many possible causes. If it occurs after an injury (such as a car accident or fall), it is most often a sign of bruising to the kidney or bladder. Common medical causes of blood in the urine include urinary tract infection, kidney stone, inflammation, tumors, or certain other diseases of the kidney or bladder. Menstruation can cause blood to appear in the urine sample, although it is not coming from the urinary tract. If only a trace amount of blood is present, it will show up on the urine test, even though the urine may be yellow and not pink or red. This may occur with any of the above conditions, as well as heavy exercise or high fever. In this case, your doctor may want to repeat the urine test on another day. This will show if the blood is still present. If so, then other tests can be done to find out the cause. Home Care: If your urine does not appear bloody (pink, brown or red) then you do not need to restrict your activity in any way. If you can see blood in your urine, rest and avoid heavy exertion until your next exam. Do not use aspirin or anti-inflammatory medicine like ibuprofen (Motrin, Advil) or naproxen (Naprosyn, Aleve). These thin the blood and may increase bleeding. Follow Up with your doctor or as advised by our staff. If you were injured and had blood in your urine, you should have a repeat urine test in 1-2 days. Contact your doctor or return to this facility for this test. [NOTE: A radiologist will review any X-rays that were taken. We will notify you of any new findings that may affect your care.] Get Prompt Medical Attention if any of the following occur: Bright red blood or blood clots in the urine (if a new symptom) Weakness, dizziness or fainting New groin, abdominal or back pain Fever of 100.4F (38C) or higher, or as directed by your healthcare provider Repeated vomiting Bleeding from nose, gums or easy bruising Bladder Infection,Female (Adult) A bladder infection ("cystitis" or "UTI") usually causes a constant urge to urinate and a burning when passing urine. Urine may be cloudy, smelly or dark. There may be pain in the lower abdomen. A bladder infection occurs when bacteria from the vaginal area enter the bladder opening (urethra). This can occur from sexual intercourse, wearing tight clothing, dehydration and other factors. Home Care: Drink lots of fluids (at least 6-8 glasses a day, unless you must restrict fluids for other medical reasons). This will force the medicine into your urinary system and flush the bacteria out of your body. Avoid sexual intercourse until your symptoms are gone. Avoid caffeine, alcohol and spicy foods. These can irritate the bladder. A bladder infection is treated with antibiotics. You may also be given Pyridium (generic = phenazopyridine) to reduce the burning sensation. This medicine will cause your urine to become a bright orange color. The orange urine may stain clothing. You may wear a pad or panty-liner to protect clothing. Preventing Future Infections: Always wipe from front to back after a bowel movement. Keep the genital area clean and dry. Drink plenty of fluids each day to avoid dehydration. Both sexual partners should wash before intercourse. Urinate right after intercourse to flush out the bladder. Wear cotton underwear and cotton-lined panty hose; avoid tight-fitting pants. If you are on control pills and are having frequent bladder infections, discuss with your doctor. Follow Up: Return to this facility or see your doctor if ALL symptoms are not gone after three days of treatment. Get Prompt Medical Attention if any of the following occur: Fever of 100.4F (38C) or higher, or as directed by your healthcare provider No improvement by the third day of treatment Increasing back or abdominal pain Repeated vomiting; unable to keep medicine down Weakness, dizziness or fainting Vaginal discharge Pain, redness or swelling in the labia (outer vaginal area) High Blood Pressure --Established High Blood Pressure (Hypertension) is a chronic disease. The cause is unknown in most cases. It can usually be controlled with lifestyle changes and/or medicines. Symptoms of high blood pressure may include headache, dizziness, visual changes, chest pain and shortness of breath. Sometimes it causes no symptoms at all. However, even if there are no symptoms, untreated high blood pressure increases the risk of heart attack, also known as acute myocardial infarction, or AMI, and stroke. It is a serious health risk and should not be ignored. A normal blood pressure is 120/80 or less. The first (top) number is the "systolic" pressure. The second (bottom) number is the "diastolic" pressure. Hypertension exists when either the top number is 140 or higher, OR the bottom number is 90 or higher on repeated measurements. Home Care: All patients with high blood pressure should do the following to lower their pressure. If you are on medicines, then these methods may reduce or eliminate your need for medicines in the future. Begin a weight loss program if you are overweight. Reduce your salt intake. Avoid high salt foods (olives, pickles, smoked meats, salted potato chips, etc.). Do not add salt to your food at the table. Use only small amounts of salt when cooking. Begin an exercise program. Discuss with your doctor what type of exercise program would be best for you. It doesn't have to be difficult. Even brisk walking for 20 minutes three times a week is a good form of exercise. Avoid medicines which contain heart stimulants. This includes many cold and sinus decongestant pills and sprays as well as diet pills. Check the warnings about hypertension on the label. Stimulants such as amphetamine or cocaine could be lethal for someone with hypertension. Never take these. Limit your caffeine intake or switch to caffeine-free products. Stop smoking. If you are a long-time smoker, this can be hard. Enroll in a stop-smoking program to improve your chance of success. Learning how to handle stress better is an important part of any program to lower blood pressure. Learn about relaxation methods such as meditation, yoga or biofeedback. If medicines were prescribed, take them exactly as directed. Missing doses may cause your blood pressure get out of control. Consider buying an automatic blood pressure machine (available at most pharmacies). Use this to monitor your blood pressure at home and report the results to your doctor. Follow Up: Regular visits to your own physician for blood pressure checks and medicine adjustment is an important part of your care. Make a follow-up appointment as directed by our staff. Get Prompt Medical Attention if any of the following occur: Chest pain or shortness of breath Severe headache Throbbing or rushing sound in the ears Nosebleed Sudden severe abdominal pain Extreme drowsiness, confusion or fainting Dizziness or vertigo (dizziness with spinning sensation) Weakness of an arm or leg or one side of the face Difficulty with speech or vision Ondansetron Oral disintegrating tablet What is this medicine? ONDANSETRON (on JOEY se bertrand) is used to treat nausea and vomiting caused by chemotherapy. It is also used to prevent or treat nausea and vomiting after surgery. How should I use this medicine? These tablets are made to dissolve in the mouth. Do not try to push the tablet through the foil backing. With dry hands, peel away the foil backing and gently remove the tablet. Place the tablet in the mouth and allow it to dissolve, then swallow. While you may take these tablets with water, it is not necessary to do so. Talk to your theater projectionist regarding the use of this medicine in children. Special care may be needed. What side effects may I notice from receiving this medicine? Side effects that you should report to your doctor or health critical care unit nurse as soon as possible: allergic reactions like skin rash, itching or hives, swelling of the face, lips, or tongue breathing problems dizziness fast or irregular heartbeat feeling faint or lightheaded, falls fever and chills swelling of the hands and feet tightness in the chest Side effects that usually do not require medical attention (report to your doctor or health critical care unit nurse if they continue or are bothersome): constipation or diarrhea headache What may interact with this medicine? Do not take this medicine with any of the following medications: -apomorphine -cisapride -dofetilide -dronedarone -pimozide -thioridazine -ziprasidone This medicine may also interact with the following medications: -carbamazepine -phenytoin -rifampicin -tramadol -other medicines that prolong the QT interval (cause an abnormal heart rhythm) What if I miss a dose? If you miss a dose, take it as soon as you can. If it is almost time for your next dose, take only that dose. Do not take double or extra doses. Where should I keep my medicine? Keep out of the reach of children. Store between 2 and 30 degrees C (36 and 86 degrees F). Throw away any unused medicine after the expiration date. What should I tell my health care provider before I take this medicine? They need to know if you have any of these conditions: heart disease history of irregular heartbeat liver disease low levels of magnesium or potassium in the blood an unusual or allergic reaction to ondansetron, granisetron, other medicines, foods, dyes, or preservatives or trying to get breast-feeding What should I watch for while using this medicine? Check with your doctor or health critical care unit nurse as soon as you can if you have any sign of an allergic reaction. Cephalexin Monohydrate Oral tablet What is this medicine? CEPHALEXIN (sef a MANNY in) is a cephalosporin antibiotic. It is used to treat certain kinds of bacterial infections It will not work for colds, flu, or other viral infections. How should I use this medicine? Take this medicine by mouth with a full glass of water. Follow the directions on the prescription label. This medicine can be taken with or without food. Take your medicine at regular intervals. Do not take your medicine more often than directed. Take all of your medicine as directed even if you think you are better. Do not skip doses or stop your medicine early. Talk to your theater projectionist regarding the use of this medicine in children. While this drug may be prescribed for selected conditions, precautions do apply. What side effects may I notice from receiving this medicine? Side effects that you should report to your doctor or health critical care unit nurse as soon as possible: allergic reactions like skin rash, itching or hives, swelling of the face, lips, or tongue breathing problems pain or trouble passing urine redness, blistering, peeling or loosening of the skin, including inside the mouth severe or watery diarrhea unusually weak or tired yellowing of the eyes, skin Side effects that usually do not require medical attention (report to your doctor or health critical care unit nurse if they continue or are bothersome): gas or heartburn genital or anal irritation headache joint or muscle pain nausea, vomiting What may interact with this medicine? probenecid some other antibiotics What if I miss a dose? If you miss a dose, take it as soon as you can. If it is almost time for your next dose, take only that dose. Do not take double or extra doses. There should be at least 4 to 6 hours between doses. Where should I keep my medicine? Keep out of the reach of children. Store at room temperature between 59 and 86 degrees F (15 and 30 degrees C). Throw away any unused medicine after the expiration date. What should I tell my health care provider before I take this medicine? They need to know if you have any of these conditions: kidney disease stomach or intestine problems, especially colitis an unusual or allergic reaction to cephalexin, other cephalosporins, penicillins, other antibiotics, medicines, foods, dyes or preservatives or trying to get breast-feeding What should I watch for while using this medicine? Tell your doctor or health critical care unit nurse if your symptoms do not begin to improve in a few days. Do not treat diarrhea with over the counter products. Contact your doctor if you have diarrhea that lasts more than 2 days or if it is severe and watery. If you have diabetes, you may get a false-positive result for sugar in your urine. Check with your doctor or health critical care unit nurse. Ibuprofen Oral tablet What is this medicine? IBUPROFEN (eye BYOO proe fen) is a non-steroidal anti-inflammatory drug (NSAID). It is used for dental pain, fever, headaches or migraines, osteoarthritis, rheumatoid arthritis, or painful monthly periods. It can also relieve minor aches and pains caused by a cold, flu, or sore throat. How should I use this medicine? Take this medicine by mouth with a glass of water. Follow the directions on the prescription label. Take this medicine with food if your stomach gets upset. Try to not lie down for at least 10 minutes after you take the medicine. Take your medicine at regular intervals. Do not take your medicine more often than directed. A special MedGuide will be given to you by the pharmacist with each prescription and refill. Be sure to read this information carefully each time. Talk to your theater projectionist regarding the use of this medicine in children. Special care may be needed. What side effects may I notice from receiving this medicine? Side effects that you should report to your doctor or health critical care unit nurse as soon as possible: allergic reactions like skin rash, itching or hives, swelling of the face, lips, or tongue black or bloody stools, blood in the urine or in vomit breathing problems changes in vision chest pain general ill feeling or flu-like symptoms nausea or vomiting redness, blistering, peeling or loosening of the skin, including inside the mouth slurred speech or weakness on one side of the body stomach pain unexplained weight gain or swelling unusually weak or tired yellowing of eyes or skin Side effects that usually do not require medical attention (report to your doctor or health critical care unit nurse if they continue or are bothersome): constipation or diarrhea dizziness gas or heartburn stomach upset What may interact with this medicine? Do not take this medicine with any of the following medications: cidofovir ketorolac methotrexate pemetrexed This medicine may also interact with the following medications: alcohol aspirin diuretics lithium other drugs for inflammation like prednisone warfarin What if I miss a dose? If you miss a dose, take it as soon as you can. If it is almost time for your next dose, take only that dose. Do not take double or extra doses. Where should I keep my medicine? Keep out of the reach of children. Store at room temperature between 15 and 30 degrees C (59 and 86 degrees F). Keep container tightly closed. Throw away any unused medicine after the expiration date. What should I tell my health care provider before I take this medicine? They need to know if you have any of these conditions: asthma cigarette smoker drink more than 3 alcohol containing drinks a day heart disease or circulation problems such as heart failure or leg edema (fluid retention) high blood pressure kidney disease liver disease stomach bleeding or ulcers an unusual or allergic reaction to ibuprofen, aspirin, other NSAIDS, other medicines, foods, dyes, or preservatives or trying to get breast-feeding What should I watch for while using this medicine? Tell your doctor or healthcare professional if your symptoms do not start to get better or if they get worse. This medicine does not prevent heart attack or stroke. In fact, this medicine may increase the chance of a heart attack or stroke. The chance may increase with longer use of this medicine and in people who have heart disease. If you take aspirin to prevent heart attack or stroke, talk with your doctor or health critical care unit nurse. Do not take other medicines that contain aspirin, ibuprofen, or naproxen with this medicine. Side effects such as stomach upset, nausea, or ulcers may be more likely to occur. Many medicines available without a prescription should not be taken with this medicine. This medicine can cause ulcers and bleeding in the stomach and intestines at any time during treatment. Ulcers and bleeding can happen without warning symptoms and can cause . To reduce your risk, do not smoke cigarettes or drink alcohol while you are taking this medicine. You may get drowsy or dizzy. Do not drive, use machinery, or do anything that needs mental alertness until you know how this medicine affects you. Do not stand or sit up quickly, especially if you are an older patient. This reduces the risk of dizzy or fainting spells. This medicine can cause you to bleed more easily. Try to avoid damage to your teeth and gums when you brush or floss your teeth. You have been given the following additional information: Abdominal Pain, Unknown Cause, (Female) Vomiting (6Y-Adult) Kidney Stone W/ Colic Hematuria Bladder Infection, Female (Adult) Hypertension, Established Ondansetron Oral disintegrating tablet Cephalexin Monohydrate Oral tablet Ibuprofen Oral tablet (Electronically signed by Cliff Tang Dr. 11/28/2016 7:30)
--- NOTE | 2016-11-28 07:31 | ED MAR SUMMARY ---
..... Medication Administration Record [facility] [address] [place] [address] Patient: TAMMIE TOURE Visit ID: [id number] 81y, F Weight: 104.3 kg Height/Length: 68 in BMI: 35 ALLERGIES: Celebrex, Sulfa Antibiotics Start 02:35 11/28/2016 Miguel Angel Frye R.N. Medication Administered: IV NS (SALINE), Dose: IV Fluids over 1 hour(s), Rate: 1000 mL/hr, Dispensed: 1000 mL bag, Site: #1 right forearm. Medication Ordered: IV NS : initial bolus 1000 mL (1000 mL/hr), then none - for X1 (NOW). Given 02:36 11/28/2016 Miguel Angel Frye R.N. Medication Administered: TORADOL [IVP], Dose: 30 mg IVP over 2 minute(s), Site: #1 right forearm. Medication Ordered: Toradol IV 30 mg (NOW). Given 02:38 11/28/2016 Jeff Lamar R.N. Medication Administered: ZOFRAN [IVP] (ONDANSETRON HCL), Dose: 4 mg IVP over 2 minute(s), Site: #1 right forearm. Medication Ordered: Zofran IV 4 mg (NOW). Start 03:09 11/28/2016 Miguel Angel Frye R.N., Stop 03:29 11/28/2016 Miguel Angel Frye R.N. Medication Administered: CEFTRIAXONE [IVPB], Dose: 1 gm IVPB, Rate: 100 mL/hr, Dispensed: 50 mL bag, Site: #1 right forearm. Medication Ordered: Ceftriaxone IV 1 gm/50mL (NOW). Given 03:13 11/28/2016 Miguel Angel Frye R.N. Medication Administered: MORPHINE [IVP], Dose: 2 mg IVP over 2 minute(s), Site: #1 right forearm. Medication Ordered: Morphine IV 4 mg (once now. may repeat once for pain > 5/10 in 15 minutes).
== END 2016-11-28 04:24 | disposition home or self-care (01) ==
LOC: ED SRH 02:14
DX: N20.1 Calculus of ureter (principal); N39.0 Urinary tract infection, site not specified; R11.2 Nausea with vomiting, unspecified; R10.31 Right lower quadrant pain; R31.9 Hematuria, unspecified; I10 Essential (primary) hypertension; Z79.84 Long term (current) use of oral hypoglycemic drugs; E11.9 Type 2 diabetes mellitus without complications; Z79.82 Long term (current) use of aspirin; Z79.891 Long term (current) use of opiate analgesic
CPT/HCPCS: 90004; 90100; 90469; 94060; 95059